=== PATIENT | female | born 1955 | race Caucasian/White ===

== ENCOUNTER 2019-11-23 16:44 | Emergency (ER) | payer BC, SELFPAY ==
--- NOTE | 2019-11-23 16:45 | XRR_ITS ---
PROCEDURE INFORMATION: Exam: XR Right Foot Complete Exam date and time: 11/23/2019 5:06 PM Age: 64 years old Clinical indication: Injury or trauma; Fall; Initial encounter; Blunt trauma; Foot; Right; Injury date: Today TECHNIQUE: Imaging protocol: XR Right foot. Views: 3 or more views. COMPARISON: No relevant prior studies available. FINDINGS: Bones/joints: No foot fracture is identified. There are fractures of the distal tibia and fibula. Soft tissues: Normal. XR/XR foot RT min 3V* [id number] IMPRESSION: There are fractures of the distal tibia and fibula. X-ray of the ankle may be of benefit.
[2019-11-23 17:03] VITALS: BP 157/92; PULSE 89; RESP 18; TEMP 37.3; O2SAT 97; BMI 25.0
--- NOTE | 2019-11-23 17:06 | ED_ITS ---
HPI - Extremity Problem General: Chief complaint: Extremity Injury, Lower Stated complaint: right foot injury Time Seen by Provider: 11/23/19 17:05 Source: patient Mode of arrival: ambulatory Limitations: no limitations History of Present Illness: HPI Narrative: Patient comes in today for complaints of injury to the right ankle. Patient was stepping out of back of a horse trailer at about 12:00 this afternoon and twisted her right ankle. Patient has been unable to bear weight on the ankle and has significant swelling and and pain. Review of Systems General: Reports: 10 or more systems reviewed and unremarkable except in HPI and below Musc: Reports: joint pain (right ankle swelling) Physical Exam Const: COMMON NORMALS: no acute distress and patient oriented x3 GENERAL APPEARANCE: cooperative HENMT: COMMON NORMALS: normocephalic and Normal external nose present HEAD & SCALP: normal to inspection and normocephalic NOSE: Normal external nose present Eye: GENERAL EYE: appearance normal, both eyes and all related structures Neck/C-Spine: COMMON NORMALS: full ROM Chest: COMMONS NORMALS: normal inspection of the chest Resp: COMMON NORMALS: normal respiratory effort EFFORT & INSPECTION: Yes able to speak in complete sentences Cardio: COMMON NORMALS: regular rate and regular rhythm RATE: regular rate RHYTHM: regular rhythm GI: COMMON NORMALS: non-tender Back/Pelvis: COMMON NORMALS: thoracic and lumbar spine normal to inspection Extremity: NARRATIVE EXTREMITY EXAM: Swelling to the right ankle. Positive pulses distally. Prompt capillary refill. Normal tendon function. Neuro: COMMON NORMALS: patient oriented x3 and moves all extremities Psych: COMMON NORMALS: mental status grossly normal and cooperative Skin: COMMON NORMALS: no rashes or lesions noted GENERAL SKIN EXAM: no rashes or lesions noted Procedures Orthopedic Splinting/Casting Injury #1: Side: right Lower Extremity Injury Location: ankle Lower Extremity Immobilizer: posterior splint and stirrup splint Other Orthopedic Equipment: crutches Course Vital Signs: Vital signs: Vital Signs Temperature 99.1 F 11/23/19 17:03 Pulse Rate 89 11/23/19 17:03 Respiratory Rate 18 11/23/19 17:54 Blood Pressure 157/92 11/23/19 17:03 Pulse Oximetry 97 11/23/19 17:03 MDM - Extremity (Nontraumatic) MDM Narrative: Medical decision making narrative: Patient comes in today with injury to the right ankle. On exam patient has significant swelling to the right ankle. Tenderness is noted to the soft tissue. Positive pulses are intact. Prompt capillary refill is noted. Differential diagnosis includes but not limited to fracture, sprain, contusion. X-ray notes fracture of the tibia and the fibula. Tibial fracture looks to go into the joint. Patient will be placed in a posterior medial lateral splint and foot nonweightbearing. Case management will be consulted for follow-up with orthopedics for further management. Reviewed exam with patient with recommendations for follow-up. Patient reports understanding. Discharge Plan Discharge Patient Disposition: Home Clinical Impression: Ankle fracture Qualifiers: Encounter type: initial encounter Fracture type: closed Laterality: right Qualified Code(s): S82.891A - Other fracture of right lower leg, initial encounter for closed fracture Condition: Stable Prescriptions: New hydrocodone-acetaminophen 5-325 mg tablet 1 tab PO Q6H PRN (Reason: pain) Qty: 10 RF: 0 No Action simvastatin 10 mg tablet 10 mg PO BEDTIME RF: 0 Discharge Orders: Discharge Order (Routine); Ordered 11/23/19 Ordered By: Wilmer Baldwin Referrals: Shantal Chun FNP [Primary Care Provider] - Discharge Diet: Usual diet Discharge Activity: Use walker/crutches as instructed Patient Instructions: Ankle Fracture (ED) Activity Restrictions/Additional Instructions: Nonweightbearing to the right ankle. Use crutches for mobility. Follow-up with orthopedics for further treatment and evaluation. Case management will contact you Tuesday for assistance with referral to orthopedics. Elevate extremity for swelling. Follow-up with primary care as needed. Return to the emergency department for new concerns. Stand Alone Forms: Work/School Release Coding Level of Care Code ED Career Development Director for Alice Fwd Exam Comprehensive
[2019-11-23 17:54] VITALS: RESP 18
[2019-11-23 18:20] VITALS: BP 161/88; PULSE 82; RESP 18; O2SAT 100
[2019-11-23] MEDS: HYDROcodone-acetaminophen 7.5-325 mg Tablet 1 TAB PO (18:20)
--- NOTE | 2019-11-26 09:36 | DCPLANNER ---
solid waste manager had message to schedule a follow up appointment for patient with ortho. solid waste manager called the ortho clinic, spoke with Pat, gave clinic patients information. solid waste manager was told that patients information would be printed and reviewed. Clinic will call patient with appointment information.
--- NOTE | 2019-11-27 13:34 | DCPLANNER ---
Patient has a follow up appointment scheduled for Saturday, November 30, 2019 at 8:[address] Webb at the ortho clinic. Clinic will call patient with appointment information.
--- NOTE | 2019-12-06 08:03 | DCPLANNER ---
Patient had a follow up appointment scheduled for patient with ortho - patient did attend appointment.
== END 2019-11-23 18:28 | disposition home or self-care (01) ==
PROVIDERS: Emergency Provider Nurse Practitioner Family; PCP Nurse Practitioner Family
DX: S82.301A Unspecified fracture of lower end of right tibia, initial encounter for closed fracture (principal); S82.831A Other fracture of upper and lower end of right fibula, initial encounter for closed fracture; X50.1XXA Overexertion from prolonged static or awkward postures, initial encounter
CPT/HCPCS: 12345; 29515; 73630; 99281; 99283; E0114

== ENCOUNTER → 2019-11-30 09:41 | Outpatient (BNVA) | payer BC, SELFPAY | PROVIDERS: PCP Nurse Practitioner Family; Referring Provider Nurse Practitioner Family; Visit Provider Orthopaedic Surgery | DX: S82.841A Displaced bimalleolar fracture of right lower leg, initial encounter for closed fracture (principal); X58.XXXA Exposure to other specified factors, initial encounter | CPT/HCPCS: 73610 ==

== ENCOUNTER → 2019-12-04 10:07 | Outpatient (BNVA) | payer BC, SELFPAY | PROVIDERS: PCP Nurse Practitioner Family; Referring Provider Nurse Practitioner Family; Visit Provider Orthopaedic Surgery | DX: Z11.59 Encounter for screening for other viral diseases (principal) | CPT/HCPCS: 87635 ==

== ENCOUNTER 2019-12-05 06:46 | Day surgery (SDC) | payer BC, OTHER, SELFPAY ==
[2019-12-05] VITALS (7 sets, daily range): BP systolic 121–149; BP diastolic 66–84; PULSE 79–104; RESP 16–18; TEMP 36.2–36.8; O2SAT 93–100
--- NOTE | 2019-12-05 | SCC_ITS ---
Procedure Done: Open reduction and internal fixation right bimalleolar 56.3 seconds of fluoroscopic guidance, for a cumulative dose of 1.53 mGy, was provided to Dr. Webb by the radiology department. C-arm images of the RIGHT ankle were saved for the patient's permanent record. [facility]
--- NOTE | 2019-12-05 | XRR_ITS ---
PROCEDURE INFORMATION: Exam: XR Right Ankle Exam date and time: 12/05/2019 10:54 AM Age: 64 years old Clinical indication: Injury or trauma; Fall; Initial encounter; Fracture, traumatic; Closed fracture; Ankle; Right; Bimalleolar; Prior surgery; Surgery date: Post-operative (0-2 days); Surgery type: Orif; Additional info: Orif ankle TECHNIQUE: Imaging protocol: XR Right ankle. Views: Frontal, lateral, and oblique stored digital fluoroscopic images obtained following operative reduction and internal fixation of the medial malleolar and lateral malleolar fractures are submitted for evaluation. Interval medial malleolar reconstruction with 2 cannulated cancellous lag screws. Interval distal fibular reconstruction with lateral plate and multiple screws. The fluoroscopic time was 56.3 seconds continuous mode. COMPARISON: CR XR ankle RT min 3V* [id number] 11/30/2019 9:47 AM FINDINGS: The interpreting radiologist was not present at the fluoroscopy. Serial images in orthogonal planes demonstrate final hardware placement and improved postsurgical alignment XR/XR ankle RT min 3V* [id number] IMPRESSION: Status post ORIF.
--- NOTE | 2019-12-05 07:05 | W.PM.OPSUD ---
Surgery/Procedure H&P Update DATE OF PROCEDURE: December 05, 2019 DATE H&P PERFORMED: 12/07/19 PREOP DIAGNOSIS: Right bimalleolar ankle fracture PLANNED PROCEDURE: Operation Date: 12/05/19 08:50 Proposed Procedures p ORIF ankle bimalleolar fracture 39782 S82.841A(Right) - Agustín Webb MD
--- NOTE | 2019-12-05 07:20 | ANES.PREANE2 ---
Pre-Anesthetic Assessment Pre-Anesthetic Assessment: Height/Weight: Height 1.73 m Weight 74.843 kg Temp Pulse Resp BP Pulse Ox 98.3 F 67 18 141/81 99 12/05/19 07:00 12/05/19 07:00 12/05/19 07:00 12/05/19 07:00 12/05/19 07:00 Preop Diagnosis: Right bimalleolar ankle fracture Proposed Procedure: Operation Date: 12/05/19 08:50 Proposed Procedures p ORIF ankle bimalleolar fracture 21147 S82.841A(Right) - Agustín Webb MD Familial anesthetic complications: None Was Beta Zainab taken within 24 hours: N/A Last intake: Intake Last Liquid Date 12/04/19 Last Liquid Time 12:00 Last Solid Date 12/04/19 Last Solid Time 12:00 Social: Social History: No alcohol and No tobacco Exam: Pre-Anes Outpt Exam: alert, oriented x 3, clear to auscultation bilaterally and regular rate & rhythm Airway: Cervical ROM: WNL MP: 1 Dentition: Full Metabolic: Metabolic: Hyperlipidemia Anesthetic Plan: ASA status: 1 Anesthesia: General and Regional (specify below) Risk of > 500 ml blood loss (7ml/kg in children): No Data Anesthesia Cardiac Studies: No Data to Display
[2019-12-05] MEDS: midazolam 1 mg/mL INJ 5 ML 5 MG IVP (07:55)
[2019-12-05] MEDS: sodium chloride 0.9% 1,000 ML 30 ML IV (07:56)
--- NOTE | 2019-12-05 08:06 | ANES.PROC ---
Anesthesia Procedures Procedure/Date: 12/05/19 Nerve Block ^: Nerve Block 1: Main Anesthesia: general anesthesia Time Out Performed: Yes Consent: requested by attending/covering physician, from patient, risks and benefits reviewed and patient agrees to proceed Nerve block location: popliteal (R) Anesthesia monitors applied: pulse oximetry, EKG, BP cuff and oxygen Nerve block position: supine Anesthetic Used: ropivicaine 0.5% and with decadron (3) Amount of anesthesia used (mL): 20 Ultrasound used to: recognize landmarks Nerve Stimulator Used?: No Interscalene/Femoral BLK: 4 stimuplex 21 g needle used for position and inplane approach, visualize local anesthetic spread and no vascular puncture identified Injection: neg aspiration of heme Patient Tolerated Procedure: well and no complications Complications: none Nerve Block 2: Main Anesthesia: general anesthesia Time Out Performed: Yes Consent: requested by attending/covering physician, from patient, risks and benefits reviewed and patient agrees to proceed Nerve block location: adductor canal (R) Anesthesia monitors applied: pulse oximetry, EKG, BP cuff and oxygen Nerve block position: supine Anesthetic Used: ropivicaine 0.5% and with decadron (1) Amount of anesthesia used (mL): 10 Nerve Stimulator Used?: No Interscalene/Femoral BLK: 4 stimuplex 21 g needle used for position and inplane approach, visualize local anesthetic spread and no vascular puncture identified Injection: neg aspiration of heme Patient Tolerated Procedure: well and no complications Complications: none
--- NOTE | 2019-12-05 10:51 | P.OP_ITS ---
Operative Report Date of procedure: December 05, 2019 Pre-op Diagnosis: Right bimalleolar ankle fracture Post-op diagnosis: same Post-op Findings: Same Procedure Done: Open reduction and internal fixation right bimalleolar Pathology: none sent Surgeon: Agustín Webb Anesthesia: General and Nerve Block (Popliteal nerve) Estimated blood loss (mL): 20 Tourniquet time (min): 45 Complications: None Findings: Patient had a bimalleolar ankle fracture consisting of a low transverse lateral malleolar fracture and a oblique vertical medial malleolar fracture beginning at the level of the plafond Condition: stable Disposition: PACU Procedure: The patient was taken to the operating room and given 2 g of Ancef and a general anesthesia. She was prepped and draped in the supine position with a tourniquet on the right thigh. The tourniquet was inflated to 300 mmHg. Initially a 4 cm long incision was made over the medial malleolus and dissection was carried down through scar tissue revealing the fracture site. The fracture was mobilized with a [place] and and held reduced with a cannulated screw guidewire. Proximal guidewire was placed to control rotation. The cannulated reamer was passed over the distal wire and a long partially threaded cancellous screw with a washer placed gaining purchase on the contralateral cortex and providing excellent compression perpendicular to the fracture line. A second partially threaded screw without a washer was placed for rotational control. Next a 6 cm long incision made from the tip of the lateral malleolus proximally. A 3 hole Variax laterally. 3 locking screws could be placed in the distal fragment and 4 screws into the lateral shaft applying compression across the lateral malleolar fracture. All wounds were irrigated with saline. Deep tissues were closed with 2-0 Vicryl. The skin was closed with skin eulalio. Incisions were covered with Xeroflo gauze, 4 x 4's, compressive web roll and an Yao wrap. She was placed in a postop boot. She was extubated and taken recovery room in stable condition. Locking plate was placed
--- NOTE | 2019-12-05 10:59 | SUR.PHASEI ---
PT AWAKE ALERT ORAL AIRWAY OUT PT VERBALIZED NO PAIN OR NAUSEA, VSS GOOD RESP EFFORT NOTED.
--- NOTE | 2019-12-05 11:00 | SUR.PHASEI ---
RT FOOT DRESSING D/I BOOT IN PLACE, DISTAL TOES PINK WARM WITH CAP REFILL LESS THAN 3 SECONDS.
--- NOTE | 2019-12-05 11:45 | ANE.PACU2 ---
Inpatient post-anesthesia follow up: Airway intact: Yes Vital signs: Temperature 97.2 F Pulse Rate 91 Respiratory Rate 18 Blood Pressure 133/75 Pulse Oximetry 96 Oxygen Delivery Me thod Room Air Oxygen Flow Rate 8 Fraction of Inspir ed Oxygen Hydration adequate: Yes Nausea and vomiting: No Pain level: 1 Mental status: Baseline
== END 2019-12-05 11:50 | disposition home or self-care (01) ==
PROVIDERS: PCP Nurse Practitioner Family; Visit Provider Orthopaedic Surgery
PROC: (CPT 27814; principal; 2019-12-05 08:50)
DX: S82.841A Displaced bimalleolar fracture of right lower leg, initial encounter for closed fracture (principal); E78.5 Hyperlipidemia, unspecified; X58.XXXA Exposure to other specified factors, initial encounter
CPT/HCPCS: 27814; 12345; 73610; 76000; 96374; C1713; J0330; J0690; J1100; J1580; J2250; J2405; J2704; J2795; J3010; J3490; J7030

== ENCOUNTER → 2020-01-16 08:03 | Outpatient (BNVA) | payer BC, SELFPAY | PROVIDERS: PCP Nurse Practitioner Family; Visit Provider Orthopaedic Surgery | DX: Z48.89 Encounter for other specified surgical aftercare (principal); S82.841A Displaced bimalleolar fracture of right lower leg, initial encounter for closed fracture; X58.XXXA Exposure to other specified factors, initial encounter | CPT/HCPCS: 73610 ==

== ENCOUNTER → 2020-01-30 08:11 | Outpatient (BNVA) | payer BC, SELFPAY | PROVIDERS: PCP Nurse Practitioner Family; Visit Provider Orthopaedic Surgery | DX: Z48.89 Encounter for other specified surgical aftercare (principal); S82.841A Displaced bimalleolar fracture of right lower leg, initial encounter for closed fracture; X58.XXXA Exposure to other specified factors, initial encounter | CPT/HCPCS: 73610 ==

== ENCOUNTER 2020-01-31 06:00 | Outpatient (RCR) | payer BC, SELFPAY | END 2020-02-25 23:59 | disposition home or self-care (01) | LOC: MPT 06:00 | PROVIDERS: PCP Nurse Practitioner Family; Referring Provider Orthopaedic Surgery; Visit Provider Orthopaedic Surgery | DX: Z47.89 Encounter for other orthopedic aftercare (principal) | CPT/HCPCS: 97110; 97116; 97140; 97161; 97530 ==

== ENCOUNTER 2020-02-26 06:00 | Outpatient (RCR) | payer BC, SELFPAY | END 2020-03-27 23:59 | disposition home or self-care (01) | LOC: MPT 06:00 | PROVIDERS: PCP Nurse Practitioner Family; Referring Provider Orthopaedic Surgery; Visit Provider Orthopaedic Surgery | DX: Z47.89 Encounter for other orthopedic aftercare (principal) | CPT/HCPCS: 97110; 97116; 97140; 97530 ==

== ENCOUNTER → 2020-03-26 08:19 | Outpatient (BNVA) | payer BC, SELFPAY | PROVIDERS: PCP Nurse Practitioner Family; Visit Provider Orthopaedic Surgery | DX: Z48.89 Encounter for other specified surgical aftercare (principal) | CPT/HCPCS: 73610 ==

== ENCOUNTER 2020-05-22 14:22 | Outpatient (CLI) | payer BC, SELFPAY ==
--- NOTE | 2020-05-22 14:34 | MM_ITS ---
WS: [id number] BILATERAL DIGITAL SCREENING MAMMOGRAPHY WITH CAD CLINICAL INFORMATION: SCREENING HISTORY: Screening mammogram. No current complaints. COMPARISON: None. TECHNIQUE: Bilateral CC and MLO views. FINDINGS: Scattered fibroglandular densities bilaterally. No suspicious focal mass, asymmetry, calcifications, or architectural distortion. No evidence of malignancy. MM/[place] [id number] IMPRESSION: BI-RADS: 1-Negative FOLLOW UP: 1 Year Follow-up Recommend return to annual screening mammography.
== END 2020-05-22 14:23 | disposition home or self-care (01) ==
LOC: RADSHAW 14:26
PROVIDERS: PCP Nurse Practitioner Family; Visit Provider Nurse Practitioner Family
DX: Z12.31 Encounter for screening mammogram for malignant neoplasm of breast (principal)
CPT/HCPCS: 77067

== ENCOUNTER 2020-07-29 02:17 | Emergency (ER) | payer OTHER, SELFPAY ==
[2020-07-29 02:19] VITALS: BP 157/93; PULSE 92; RESP 19; TEMP 36.8; O2SAT 96; BMI 24.9
--- NOTE | 2020-07-29 02:59 | W.ED.ANIMALB ---
HPI - Animal Bite General: Chief Complaint: Animal Bite Stated Complaint: DOG BITE Time Seen by Provider: 07/29/20 02:39 History of Present Illness: HPI narrative: Patient is a 64-year-old female comes to the ED after having a dog bite. 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 When she went to take care of one of the patient's in their house large dog that was the campus recruiter's dog attacked her. The dog bit patient's right forearm and also caused a superficial abrasion on the bridge of patient's nose. The dog campus recruiter said that dog is fully vaccinated. Patient says her apartment leasing consultant partner is going out to the house of the dog campus recruiter estuardo to get paperwork on dog's vaccinations. If they are unable to get the dog's vaccination chart, dog will be put in quarantine. Patient is unsure of last tetanus dose. Associated symptoms: Deny chills, fever(s) or headache(s) Review of Systems Const: Denies: fever(s), chills or fatigue Eyes: Denies: change in vision or eye discomfort ENMT: Denies: throat pain, odynophagia, nasal discharge or nasal congestion Card: Denies: chest pain, palpitations, edema, swelling of feet/ankles, dyspnea on exertion or orthopnea Resp: Denies: dyspnea, productive cough or non-productive cough GI: Denies: abdominal pain, nausea, vomiting, diarrhea, constipation or hematochezia : Denies: flank pain, dysuria or hematuria Musc: Denies: neck pain, back pain or extremity swelling Skin/Breast: Reports: new lesions (dog bite on Right forearm and superficial abrasion on bridge of nose); Denies: rash Neuro: Denies: headache(s), numbness in extremities or weakness in extremities Physical Exam Const: COMMON NORMALS: no acute distress, patient oriented x3 and alert GENERAL APPEARANCE: cooperative and comfortable HENMT: COMMON NORMALS: normocephalic HEAD & SCALP: normocephalic MOUTH: Normal oral and palatal mucosa present THROAT: posterior oropharynx normal and uvula midline Neck/C-Spine: COMMON NORMALS: supple GENERAL: Yes normal visual inspection Resp: COMMON NORMALS: normal respiratory effort, No retractions, No use of accessory muscles and clear to auscultation bilaterally AUSCULTATION: clear to auscultation bilaterally Cardio: COMMON NORMALS: regular rate, regular rhythm, S1 normal heart sound present, S2 normal heart sound present, No gallops present (Cardio), No clicks present (Cardio), No murmurs present (Cardio) and Peripheral pulses 2+ throughout RATE: regular rate RHYTHM: regular rhythm HEART SOUNDS: S1 normal heart sound present and S2 normal heart sound present PERIPHERAL PULSES: Peripheral pulses 2+ throughout GI: COMMON NORMALS: Normal to inspection, nondistended, normoactive bowel sounds present, Soft to palpation, non-tender and no masses PALPATION: Yes Soft to palpation : COMMON NORMALS: Yes no CVA tenderness BLADDER/KIDNEY EXAM: Yes no CVA tenderness Back/Pelvis: COMMON NORMALS: no CVA tenderness Extremity: NARRATIVE EXTREMITY EXAM: Patient has 1 small superficial puncture wound on right forearm along with V shaped superficial 1.5 cm laceration on right forearm as well. GENERAL: Yes normal exam except as noted Neuro: COMMON NORMALS: patient oriented x3 and moves all extremities SENSORIUM/ORIENTATION: Yes alert Skin: NARRATIVE SKIN EXAM: Patient has 1 small superficial puncture wound on right forearm along with V shaped superficial 1.5 cm laceration on right forearm as well. No signs of cellulitis noted. Superficial abrasion to bridge of nose. No signs of cellulitis noted GENERAL SKIN EXAM: dry skin Procedures Laceration Laceration 1: Site: upper extremity (Right forearm) Side (If applicable): right Size (cm): 1.5 Description: irregular (V-shaped) and clean Depth: simple, single layer Local Anesthetic: lidocaine 1% and with epi Amount of anesthesia used (mL): 10 Pre-repair: irrigated extensively (With normal saline and then cleaned with CHG swab.) Skin layer closed with: nylon Size (cm): 5-0 Number of sutures: 2 Technique: simple, interrupted Course Vital Signs: Vital signs: Vital Signs Temperature 98.2 F 07/29/20 02:19 Pulse Rate 92 07/29/20 02:19 Respiratory Rate 19 H 07/29/20 02:19 Blood Pressure 157/93 07/29/20 02:19 Pulse Oximetry 96 07/29/20 02:19 MDM - Animal Bite MDM Narrative: Medical decision making narrative: Patient is a 63-year-old female comes to the ED with a dog bite. 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 Patient has a small puncture wound to right forearm and a superficial V-shaped 1.5 cm laceration right forearm as well. Patient also has a superficial abrasion to bridge of nose. No signs of cellulitis present. Laceration, abrasion and puncture wounds were irrigated extensively with normal saline and cleaned with CHG swab. 2 sutures were placed to close the V-shaped laceration on forearm. Patient was put on a prophylactic prescription of Augmentin. Patient was also given updated tetanus here in the ED. Patient's partner is going to the campus recruiter of the dog's house [employer] to get vaccination papers of dog or to get dog quarantined. I informed patient that if she is unable to get the vaccination history her dog quarantined in the next 24 hours she needs to return to the ED to start rabies prophylaxis. Return to PCP or ED to get sutures removed in 7 to 10 days. Patient was discharged home and she understood and agreed with plan. Discharge Plan Discharge Patient Disposition: Home Clinical Impression: Dog bite Qualifiers: Encounter type: initial encounter Qualified Code(s): W54.0XXA - Bitten by dog, initial encounter Condition: Stable Prescriptions: New Augmentin 500-125 mg tablet 1 tab PO BID 7 Days Qty: 14 RF: 0 No Action gabapentin [Neurontin] 300 mg capsule 300 mg PO .QHS 30 Days Qty: 30 RF: 0 cephalexin 500 mg capsule 500 mg PO Q8H 10 Days Qty: 30 RF: 0 simvastatin 10 mg tablet 10 mg PO BEDTIME RF: 0 Discharge Orders: Discharge ED (Routine); Ordered 07/29/20 Ordered By: Jama Franklin Referrals: Shantal Cuhn FNP [Primary Care Provider] - Discharge Diet: Regular Discharge Activity: Resume usual activity Patient Instructions: Animal Bite (ED), Suture Care (ED), Laceration (ED) Activity Restrictions/Additional Instructions: Follow-up with medical provider as directed in 7 to 10 days to remove sutures. Keep laceration dry and clean for the next 48 hours, then clean and rebandage daily. Apply triple antibiotic ointment on laceration site to help prevent infection. Remember if you are not unable to get the dog's vaccination history or if you are unable to have dog put in quarantine within the next 24 hours return to the ED to start rabies prophylaxis vaccination. take medications as prescribed. Return to the ER or your medical provider if condition worsens. Please read and understand discharge instructions. Thank you for choosing [facility] for your healthcare needs today. Please realize this is an emergency room and that we are providing you with a medical screening exam and this may not be complete and all inclusive of all the testing and or work up that you may need to determine your ailment or severity of your illness. It is very important that you follow up as instructed or that you return to the Emergency Department should you have concerns or if your condition changes or worsens in any way. Coding Level of Care Code ED Academic Tutor for Alice Bardales Exam Comprehensive
[2020-07-29] MEDS: amoxicillin-clav 500-125 mg Tablet 1 TAB PO (03:14)
[2020-07-29] MEDS: tetanus-dipt-pertussis 0.5 mL SDV IM (03:15)
[2020-07-29] MEDS: neomycin-poly-bacitracin oint 0.9 gm Pkt 1 APPLIC TOPICAL (03:17)
[2020-07-29 03:22] VITALS: RESP 16
== END 2020-07-29 03:23 | disposition home or self-care (01) ==
PROVIDERS: Emergency Provider Physician Assistant; PCP Nurse Practitioner Family
DX: S51.851A Open bite of right forearm, initial encounter (principal); W54.0XXA Bitten by dog, initial encounter; Z23 Encounter for immunization
CPT/HCPCS: 12001; 90471; 90715; 99283

== ENCOUNTER 2023-03-01 12:16 | Outpatient (CLI) | payer BC, SELFPAY ==
--- NOTE | 2023-03-01 12:38 | XRR_ITS ---
PROCEDURE INFORMATION: Exam: XR Right Knee Exam date and time: 03/01/2023 12:46 PM Age: 67 years old Clinical indication: Pain; Knee; Bilateral TECHNIQUE: Imaging protocol: Radiologic exam of the right knee. Views: 1 or 2 views. COMPARISON: CR XR ankle RT min 3V* [id number] 03/26/2020 8:25 AM FINDINGS: Bones/joints: Mild marginal spurring. No fracture or dislocation. No erosive changes. Soft tissues: Normal. XR/XR knee RT 1-2V [id number] IMPRESSION: No acute findings.
--- NOTE | 2023-03-01 12:38 | XRR_ITS ---
PROCEDURE INFORMATION: Exam: XR Left Knee Exam date and time: 03/01/2023 12:46 PM Age: 67 years old Clinical indication: Pain; Knee; Bilateral TECHNIQUE: Imaging protocol: Radiologic exam of the left knee. Views: 1 or 2 views. COMPARISON: No relevant prior studies available. FINDINGS: Bones/joints: Mild articular surface narrowing and spurring, greatest at the patellofemoral joint. No erosive changes. No acute osseous or joint abnormality. Soft tissues: 19 mm focal coarse calcification in the soft tissues of the lower thigh. XR/XR knee LT 1-2V [id number] IMPRESSION: Mild degenerative changes.
== END 2023-03-01 12:17 | disposition home or self-care (01) ==
PROVIDERS: PCP Nurse Practitioner Family; Visit Provider Nurse Practitioner Family
DX: M25.562 Pain in left knee (principal); M25.561 Pain in right knee
CPT/HCPCS: 73560

== ENCOUNTER → 2024-02-10 09:50 | Outpatient (BNVA) | payer MEDICARE, SELFPAY | PROVIDERS: PCP Nurse Practitioner Family; Visit Provider Nurse Practitioner | DX: M25.561 Pain in right knee (principal); M17.11 Unilateral primary osteoarthritis, right knee | CPT/HCPCS: 73560; 73565 ==

== ENCOUNTER 2024-02-10 11:29 | Outpatient (CLI) | payer MEDICARE, SELFPAY | END 2024-02-10 11:30 | disposition home or self-care (01) | LOC: SPT 11:30 | PROVIDERS: PCP Nurse Practitioner Family; Visit Provider Nurse Practitioner | DX: Z46.89 Encounter for fitting and adjustment of other specified devices (principal); M25.561 Pain in right knee | CPT/HCPCS: L1812 ==

== ENCOUNTER 2024-02-29 12:39 | Outpatient (CLI) | payer MEDICARE, SELFPAY ==
--- NOTE | 2024-02-29 12:42 | MM_ITS ---
WS: [id number] BILATERAL 3D TOMOSYNTHESIS DIGITAL SCREENING MAMMOGRAPHY WITH CAD CLINICAL INFORMATION: SCREENING HISTORY: Screening mammogram. No current complaints. COMPARISON: 2020 TECHNIQUE: Bilateral CC and MLO views. FINDINGS: Scattered fibroglandular densities bilaterally. No suspicious focal mass, asymmetry, calcifications, or architectural distortion. No evidence of malignancy. Incidental punctate calcification RIGHT breas t. MM/MM scr BI tomosynthesis [id number] IMPRESSION: DENSITY: There are scattered areas of fibroglandular density. BI-RADS: 2 - Benign. FOLLOW UP: 1 Year Follow-up Recommend return to annual screening mammography.
== END 2024-02-29 12:40 | disposition home or self-care (01) ==
LOC: RAD 12:40
PROVIDERS: PCP Nurse Practitioner Family; Visit Provider Nurse Practitioner Family
DX: Z12.31 Encounter for screening mammogram for malignant neoplasm of breast (principal); R92.323 Mammographic fibroglandular density, bilateral breasts; R92.1 Mammographic calcification found on diagnostic imaging of breast
CPT/HCPCS: 77063; 77067

== ENCOUNTER → 2024-04-04 10:26 | Outpatient (BNVA) | payer MEDICARE, SELFPAY | PROVIDERS: PCP Nurse Practitioner Family; Visit Provider Nurse Practitioner | DX: M17.11 Unilateral primary osteoarthritis, right knee (principal) | CPT/HCPCS: 99213 ==

== ENCOUNTER → 2024-05-29 08:24 | Outpatient (BNVA) | payer MEDICARE, SELFPAY | PROVIDERS: PCP Nurse Practitioner Family; Visit Provider Nurse Practitioner Family | DX: L72.0 Epidermal cyst (principal); L82.1 Other seborrheic keratosis; L81.4 Other melanin hyperpigmentation; L82.0 Inflamed seborrheic keratosis; L53.8 Other specified erythematous conditions; L29.89 Other pruritus; L57.0 Actinic keratosis | CPT/HCPCS: 17000; 17110; 99203 ==

== ENCOUNTER → 2025-02-28 09:36 | Outpatient (BNVA) | payer MEDICARE, SELFPAY | PROVIDERS: PCP Nurse Practitioner Family; Visit Provider Student in an Organized Health Care Education/Training Program | DX: Z12.11 Encounter for screening for malignant neoplasm of colon (principal); R03.0 Elevated blood-pressure reading, without diagnosis of hypertension | CPT/HCPCS: 99024; 99203 ==

== ENCOUNTER 2025-03-04 09:24 | Outpatient (CLI) | payer MEDICARE, SELFPAY ==
--- NOTE | 2025-03-04 09:31 | MM_ITS ---
WS: [id number] BILATERAL SCREENING DIGITAL TOMOSYNTHESIS MAMMOGRAM WITH CAD HISTORY: SCREENING COMPARISON: 02/29/2024, 05/22/2020 Bilateral CC and MLO views with tomosynthesis and synthetic mammography submitted. Computer aided detection analyzed. Breast composition: There are scattered areas of fibroglandular density. No suspicious masses, microcalcifications or architectural distortion. MM/MM scr BI tomosynthesis [id number] IMPRESSION: BI-RADS: 1 - Negative. FOLLOW UP: 1 Year Follow-up
== END 2025-03-04 09:25 | disposition home or self-care (01) ==
LOC: RAD 09:27
PROVIDERS: PCP Nurse Practitioner Family; Visit Provider Nurse Practitioner Family
DX: Z12.31 Encounter for screening mammogram for malignant neoplasm of breast (principal); R92.323 Mammographic fibroglandular density, bilateral breasts
CPT/HCPCS: 77063; 77067